=== PATIENT | female | born 1970 | race Caucasian/White ===

== ENCOUNTER 2018-03-17 09:53 | Emergency (ER) | payer OTHER ==
[2018-03-17] MEDS ORDERED: 0.9 % SODIUM CHLORIDE 1,000 ML IV ONE (10:27)
[2018-03-17] MEDS ORDERED: KETOROLAC TROMETHAMINE 30 MG/1ML VIAL IVP ONE (10:32)
[2018-03-17] MEDS ORDERED: CIPROFLOXACIN/D5W 400 MG in PREMIX BAG 1 BAG IV ONE (10:34)
[2018-03-17] MEDS ORDERED: CIPROFLOXACIN/D5W 200 ML IV ONE (10:40)
--- NOTE | 2018-03-17 11:19 | ED Physician Documentation ---
General Adult - HISTORIAN Historian: patient - HPI Stated Complaint: UTI symptoms Chief Complaint: General Adult Onset: days ago (2) Timing: still present Severity: moderate Further Comments: yes (Pt is a 47 yo female with dysuria, urinary frequency and urgency x 2 days. Pt has not had fever, n/v. Pt has been taking azo. Pt now has back pain that radiates to the R flank.) - ROS CONST: chills, other (malaise) EYES/ENT: none CVS/RESP: none GI/: problems urinating MS/SKIN/LYMPH: none - PAST HX Past History: other (anemia, anxiety, depression, GERD, ) Surgeries/Procedures: , cholecystectomy, other (tonsillectomy, ortho surgery) Allergies/Adverse Reactions: Allergies Allergy/AdvReac Type Severity Reaction Status Date / Time acetaminophen [From NyQuil] Allergy Verified 03/17/18 10:44 cefaclor [From Ceclor] Allergy Verified 03/17/18 10:44 dextromethorphan HBr Allergy Verified 03/17/18 10:44 [From NyQuil] doxylamine [From NyQuil] Allergy Verified 03/17/18 10:44 pseudoephedrine HCl Allergy Verified 03/17/18 10:44 [From NyQuil] - SOCIAL HX Smoking History: quit greater than 1 year - FAMILY HX Family History: No - VITAL SIGNS Vital Signs: Vital Signs Temp Pulse Resp BP Pulse Ox 98.7 F 98 H 20 174/92 99 03/17/18 09:53 03/17/18 09:53 03/17/18 09:53 03/17/18 09:53 03/17/18 09:53 - REVIEWED ASSESSMENTS Nursing Assessment Reviewed: Yes Vitals Reviewed: Yes Progress - Progress Progress: NS 1 L IVF Cipro 400 mg IV Toradol 30 mg IV pain improved after Toradol Rx Ciprofloxacin 500 mg po bid x 14 days. ED Results Lab/Radiology - Orders Orders: ED Orders Category Date Time Status Place IV Lock 1T Care 03/17/18 10:26 Active BLOOD CULTURE Stat Lab 03/17/18 10:37 Received CBC/PLATELET/DIFF Routine Lab 03/17/18 10:36 Received CMP Routine Lab 03/17/18 10:36 Received URINALYSIS Routine Lab 03/17/18 10:36 Received 0.9 % Sodium Chloride [Normal Saline] 1,000 ml Med 03/17/18 10:27 Active IV Q1H Ciprofloxacin/D5w [Cipro] 200 ml Med 03/17/18 10:40 Discontinued IV .STK-MED Ciprofloxacin/D5w [Cipro] 400 mg Med 03/17/18 10:34 Active Premix Bag [Premix Fluid] 1 bag IV NOW Ketorolac Tromethamine [Toradol] Med 03/17/18 10:32 Discontinued 30 mg IVP NOW ONE General Adult Physical Exam - PHYSICAL EXAM GENERAL APPEARANCE: moderate distress EENT: pharynx normal NECK: normal inspection, supple RESPIRATORY: no resp distress, chest non-tender, breath sounds normal CVS: reg rate & rhythm, heart sounds normal ABDOMEN: soft, normal bowel sounds, tenderness (R side) BACK: normal inspection, CVA tenderness (R) SKIN: warm/dry, normal color EXTREMITIES: non-tender, normal range of motion, no evidence of injury, no edema NEURO: oriented X3, motor nml, sensation nml Discharge Clincal Impression: Pyelonephritis Referrals: Elizabeth Prieto MD [Primary Care Provider] - Condition: Stable Disposition: 01 HOME, SELF-CARE Decision to Admit: NO Decision Time: 11:21
[2018-03-17 11:52] VITALS: BP 128/74
[2018-03-18 07:27] LABS: EOSINOPHILS % 1.7 % (0.0-6.8); MEAN CORPUSCULAR HEMOGLOBIN 27.6 pg (28.0-34.0); MONOCYTES % 5.9 % (0.0-11.0)
[2018-03-18 07:28] LABS: BASOPHILS % 0.5 (0.0-1.5); NEUTROPHILS # 6.7 # k/uL (1.4-7.7); eGFR (Non-African) > 60
[2018-03-18 07:33] LABS: APPEARANCE,URINE CLOUDY (CLEAR); COLOR,URINE ORANGE (YELLOW); OCCULT BLOOD,URINE 2+ (NEGATIVE)
== END 2018-03-17 11:48 | disposition home or self-care (01) ==
LOC: ED 09:53
DX: N12 Tubulo-interstitial nephritis, not specified as acute or chronic (principal); B96.20 Unspecified Escherichia coli [E. coli] as the cause of diseases classified elsewhere
CPT/HCPCS: 36415; 80053; 81002; 85025; 87040; 87086; 87186; 96365; 96375; 99282; 99284; J0744; J1885; J7030; S1016